=== PATIENT | male | born 1965 | race Hispanic/Latino ===

== ENCOUNTER 2020-06-08 18:42 | Emergency (ER) | payer OTHER, SELFPAY ==
--- NOTE | ~2020-06-08 | XR_ITS ---
EXAMINATION: XR chest 1V portable 06/08/2020 19:35 INDICATION: Cough, fever and chills PROCEDURE: AP portable chest COMPARISON: 01/22/2019 FINDINGS: The lungs are clear. The cardiomediastinal silhouette is within normal limits. There are no pleural effusions. There is no pneumothorax suspected. IMPRESSION: 1: NO ACUTE CARDIOPULMONARY DISEASE. Reviewed, dictated and finalized at location A.
[2020-06-08 18:46] VITALS: BP 142/102; PULSE 83; RESP 18; TEMP 36.6; O2SAT 97
--- NOTE | 2020-06-08 19:08 | ED.GENADULT ---
HPI - General Adult General Chief complaint: Upper Respiratory Infection Stated complaint: fever, nasal & chest congestion, sore throat Time Seen by Provider: 06/08/20 19:07 Source: patient and family Mode of arrival: ambulatory Limitations: no limitations History of Present Illness HPI narrative: Patient is a 55-year-old male who presents for evaluation of fever, chills, cough. Patient reports he has been feeling unwell since Sunday when he developed a low-grade fever of 100 Fahrenheit, chills, rhinorrhea and sore throat. That is now progressed and he now has been having a productive cough. He denies any nausea, vomiting, flank pain, myalgias or diarrhea. He has been able to tolerate oral intake. No chest pain or shortness of breath. No recent sick contacts. 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 Nobody is sick at home. Patient has no history of pneumonia. Related Data Allergies Allergy/AdvReac Type Severity Reaction Status Date / Time No Known Allergies Allergy Unverified 11/03/19 09:42 Review of Systems Review of Systems: Narrative: CONSTITUTIONAL: Reports fever and chills ENT: Reports rhinorrhea, congestion, sore throat CARDIOVASCULAR: Denies chest pain, palpitations, or edema. RESPIRATORY: Reports cough, denies shortness of breath GASTROINTESTINAL: Denies abdominal pain, nausea, vomiting, or diarrhea. GENITOURINARY: Denies dysuria or hematuria. SKIN: Denies rash or itching. MUSCULOSKELETAL: Denies back pain, joint pain, or myalgia. NEUROLOGIC: Denies headache, numbness, or weakness. [facility] Past Medical History Medical History (Updated 06/08/20 @ 21:07 by Dania Gtz MD) No pertinent past medical history Presence of surgical screw in right hand Surgical History Surgical History (Updated 06/08/20 @ 19:45 by Dania Gtz MD) Hx of hand surgery Social History Social History (Updated 06/08/20 @ 19:45 by Dania Gtz MD) Smoking status: Current some day smoker Tobacco type: cigarettes Alcohol intake: current Substance use: current Substance use type: crack/cocaine Living arrangements: with family Gender identity (if verbalized by the patient): Male Exam Narrative: Exam Narrative: GENERAL: Awake, alert, conversant HEAD: Normocephalic, atraumatic. EYES: PERRLA and EOMI. ENT: Nares clear, no rhinorrhea or epistaxis. Mucous membranes moist. NECK: Supple. CHEST: No respiratory distress, breathing even and non labored HEART: Regular rate, sinus rhythm ABDOMEN:Non distended, non tender EXTREMITIES: Normal range of motion. No edema. SKIN: Warm, dry, no rash. NEURO:No focal deficits. Alert and oriented x3 Course Vital Signs Vital signs: Vital Signs Temperature 36.6 C 06/08/20 18:46 Pulse Rate 83 06/08/20 18:46 Respiratory Rate 18 06/08/20 18:46 Blood Pressure 142/102 H 06/08/20 18:46 Pulse Oximetry 97 06/08/20 18:46 Temperature 36.6 C 06/08/20 18:46 Pulse Rate 63 06/08/20 19:45 Respiratory Rate 17 06/08/20 19:45 Blood Pressure 140/90 06/08/20 19:45 Pulse Oximetry 97 06/08/20 19:45 Medical Decision Making [facility] Narrative Medical decision making narrative: Patient well-appearing, no signs of acute febrile illness based on vital signs. He is well-appearing without hypoxemia, chest pain or increased work of breathing. No nausea or vomiting. Not obtain blood work as I feel like his chest x-ray is clear his urinalysis is clear he has no evidence of severe infectious type process. No evidence of pneumonia. Clinically this may be a respiratory virus, we need to exclude COVID so we will order COVID swab. Patient and family were updated, I explained results to be called to his primary care provider and patient was discharged home. Differential Diagnosis Differential Diagnosis: COVID infection, pneumonia, bronchitis, UTI Vital Signs Vital Signs: Vital Signs Temperature 36.6 C 06/08/20 18:46
[2020-06-08 19:45] VITALS: BP 140/90; PULSE 63; RESP 17; O2SAT 97
[2020-06-08 19:59] LABS: Add Urine Microscopic? YES; Appearance Urine Clear (Clear); Bacteria Urine Trace /hpf; Bilirubin Urine Negative (Negative); Blood Urine Negative (Negative); Color Urine Yellow (Yellow); Glucose Urine UA Negative (Negative); Ketones Urine Negative (Negative); Leukocyte Esterase Ur Negative LEU/UL (Negative); Mucus Urine Rare /lpf; Nitrate Urine Negative (Negative); Protein Urine Negative (Negative); RBC Urine 0-2 /hpf (0-2); Specific Grav Ur 1.025 (1.001-1.035); WBC Urine 0-3 /hpf
[2020-06-08 21:44] VITALS: RESP 17
[2020-06-09 18:19] LABS: SARS-CoV-2 RNA PCR Negative
== END 2020-06-08 21:45 | disposition home or self-care (01) ==
PROVIDERS: Emergency Provider Emergency Medicine; PCP Family Medicine
DX: J06.9 Acute upper respiratory infection, unspecified (principal); Z20.828 Contact with and (suspected) exposure to other viral communicable diseases
CPT/HCPCS: 71045; 81001; 87081; 87635; 87880; 99283; C9803; U0003

== ENCOUNTER 2021-11-23 09:17 | Emergency (ER) | payer OTHER, SELFPAY ==
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
[2021-11-23 09:26] VITALS: BP 158/91; PULSE 64; RESP 18; TEMP 36.4; O2SAT 97
[2021-11-23 10:11] VITALS: BP 155/88; PULSE 68; RESP 14; O2SAT 97
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
== END 2021-11-23 10:11 | disposition home or self-care (01) ==
PROVIDERS: Emergency Provider Emergency Medicine; PCP Family Medicine
DX: S39.012A Strain of muscle, fascia and tendon of lower back, initial encounter (principal); F17.210 Nicotine dependence, cigarettes, uncomplicated; M47.816 Spondylosis without myelopathy or radiculopathy, lumbar region; V49.40XA Driver injured in collision with unspecified motor vehicles in traffic accident, initial encounter
CPT/HCPCS: 72110; 99283

== ENCOUNTER 2022-10-18 17:25 | Emergency (ER) | payer OTHER, SELFPAY ==
[2022-10-18] VITALS (13 sets, daily range): BP systolic 112–157; BP diastolic 85–97; PULSE 74–84; RESP 12–18; TEMP 36.7; O2SAT 95–100
--- NOTE | ~2022-10-18 | CT_ITS ---
CT Abdomen and Pelvis with contrast. History: Abdominal pain. Spiral CT of the abdomen and pelvis was performed after the administration of intravenous contrast. 1 00 cc of Omnipaque 350 was administered intravenously without complication. Dose reduction technique was used on this scan by utilizing automated exposure control and iterative reconstruction technique. The dose-length product (DLP) was 282.76 mGy-cm. COMPARISON: 01/15/2017 Findings: Scans through the lung bases demonstrate mild atelectatic change. Probable diffuse fatty infiltration of the liver. The spleen, pancreas, gallbladder, adrenals and kid neys are within normal limits. No evidence of aortic aneurysm. No lymphadenopathy is seen. There is no evidence of bowel obstruction. There is no evidence to suggest acute appendicitis or dive rticulitis. Images through the pelvis were performed. Urinary bladder unremarkable. Prostate gland and seminal ve sicles are unremarkable. No ascites is seen. Impression: Probable diffuse fatty infiltration of the liver. No other significant findings. Reviewed, dictated and finalized at [facility]. S SUPERINTENDENT Impression: Probable diffuse fatty infiltration of the liver. No other significant findings.
[2022-10-18 17:51] LABS: Basophils Percent Auto 0.3 % (0.2-1.2); Eosinophils Percent Auto 0.1 % (0-4.4); Hematocrit 42.5 % (42.0-52.0); Hemoglobin 14.9 g/dL (14.0-18.0); Immature Granulocyte Absolute 0.02 K/mm3 (0.00-0.031); Immature Granulocyte Percent A 0.3 % (0-0.5); Lymphocytes Absolute Auto 2.34 K/mm3 (0.9-3.2); Lymphocytes Percent Auto 33.2 % (18.3-44.2); Mean Corpuscular HGB Conc 35.1 g/dl (32-36); Mean Corpuscular Hemoglobin 31.9 pg (26-34); Mean Platelet Volume 9.8 fl (7.4-10.4); Monocytes Absolute Auto 0.6 K/mm3 (0.1-0.6); Monocytes Percent Auto 7.8 % (2.6-8.5); Neutrophils Absolute Auto 4.1 K/mm3 (1.3-6.7); Neutrophils Percent Auto 58.3 % (45.5-73.1); Platelet Count Result 310 k/mm3 (150-375); Red Blood Count 4.67 M/mm3 (4.6-6.20); Red Cell Distribution Width 12.2 % (11.5-14.5)
[2022-10-18 18:06] LABS: Alanine Aminotransferase 52 U/L (6-50); Albumin Level 4.8 g/dL (3.5-5.1); Alkaline Phosphatase 91 U/L (38-126); Anion Gap 11 mmol/L (8-16); Aspartate Amino Transferase 27 U/L (17-59); Bilirubin,Total 0.5 mg/dL (0.2-1.3); Blood Urea Nitrogen 12 mg/dL (9-20); Carbon Dioxide 25 mmol/L (22-30); Chloride 97 mmol/L (98-107); Estimated CRCL calculation 78 ml/min; Estimated Glomerular Filt Rate > 60; Glucose 106 mg/dL (65-110); Lipase 117 U/L (23-300); Potassium 4.1 mmol/L (3.4-5.0); Sodium 133 mmol/L (137-145)
[2022-10-18 18:08] LABS: Add Urine Microscopic? NO; Appearance Urine Clear (Clear); Bilirubin Urine Negative (Negative); Blood Urine Negative (Negative); Color Urine Yellow (Yellow); Glucose Urine UA Negative (Negative); Ketones Urine Negative (Negative); Leukocyte Esterase Ur Negative LEU/UL (Negative); Nitrate Urine Negative (Negative); Protein Urine Negative (Negative); Specific Grav Ur <= 1.005 (1.001-1.035); Urobilinogen Urine 0.2 mg/dL (<2.0); pH Urine 6.5 (5.0-9.0)
[2022-10-18] MEDS: SODIUM CHLORIDE 0.9% IV 1,000 ML 999 ML IV CONT (22:23)
--- NOTE | 2022-10-18 22:46 | ED.GENADULT ---
HPI - General Adult General Chief complaint: Nausea/Vomiting/Diarrhea Stated complaint: nausea vomiting/ weakness Time Seen by Provider: 10/18/22 22:01 History of Present Illness HPI narrative: 57-year-old male with history of diverticulitis, fatty liver disease and daily alcohol consumption presents to the emergency department complaining of nausea vomiting abdominal cramping that started on Sunday. He states he had similar problems last week and was seen at an outside hospital. Patient was provided Bentyl and Zofran. Patient states he is still been taking this medication but it has not helped. Patient began having worsening cramping on Sunday but denies any current abdominal pain. Patient states he still having decreased p.o. intake. Patient denies any recent alcohol intake. Patient denies any prior history of alcohol withdrawal but states he does have some increased anxiety related to his abdominal pain. Family member was present during this discussion Related Data Allergies Allergy/AdvReac Type Severity Reaction Status Date / Time No Known Allergies Allergy Verified 11/23/21 09:28 Review of Systems Review of Systems: CONSTITUTIONAL: Denies fever, chills, or sweats. EYES: Denies visual changes, redness, or discharge. ENT: Denies rhinorrhea, congestion, sore throat, or otalgia. CARDIOVASCULAR: Denies chest pain, palpitations, or edema. RESPIRATORY: Denies cough or dyspnea. GASTROINTESTINAL: See HPI GENITOURINARY: Denies dysuria or hematuria. SKIN: Denies rash or itching. MUSCULOSKELETAL: Denies back pain, joint pain, or myalgia. NEUROLOGIC: Denies headache, numbness, or weakness. [facility] Past Medical History Medical History (Updated 10/19/22 @ 00:21 by Larry Anthony MD) No pertinent past medical history Presence of surgical screw in right hand Surgical History Surgical History (Updated 06/08/20 @ 19:45 by Dania Gtz MD) Hx of hand surgery Social History Social History (Updated 06/08/20 @ 19:45 by Dania Gtz MD) Smoking status: Current some day smoker Tobacco type: cigarettes Alcohol intake: current Substance use: current Substance use type: crack/cocaine Gender identity (if verbalized by the patient): Male Exam Narrative: APPEARANCE: Well appearing, no pain, no distress, well-nourished. HEAD: normocephalic, atraumatic. EYES: PERRLA/EOMI, conjunctivae clear. NOSE: Normal no drainage EARS:TMS clear with good light reflex. NECK: Supple. No adenopathy, no masses. RESPIRATORY: Airway patent, respirations nonlabored. Clear to auscultation bilaterally, no rales, rhonchi, wheezing. CARDIOVASCULAR: Regular rate and rhythm without murmurs rubs or gallops. ABDOMINAL: Lower abdominal tenderness to palpation, nondistended, normal bowel sounds MUSCULOSKELETAL: Moves all extremities. Strength/ROM intact, No edema, No calf tenderness. NEURO: Alert. Cranial nerves II through XII intact. Grossly intact SKIN: Warm, dry. Normal Color Course Course Emergency Course: Patient is afebrile with no leukocytosis. Patient has minimal abdominal tenderness UA shows no evidence of infection. CT showed no evidence of intra-abdominal pathology. Patient does feel improved with treatment. Patient will be provided Reglan for nausea control at home. Patient was going to close follow-up with his primary care physician. Patient was also informed that he may need follow-up with GI. All questions concerns were addressed. Differential diagnosis did include colitis, diverticulitis, appendicitis, cholecystitis, ileus, small bowel obstruction, alcohol withdrawal. With normal-appearing labs and a negative CT scan most likely etiology is a gastroenteritis. Patient was provided medications for nausea control and was encouraged of close well up with his primary care physician. All questions concerns were addressed. Patient and family were comfortable with the plan for discharge and close follow-up. Vital Sig
[2022-10-18] MEDS: METOCLOPRAMIDE HCL INJ 10 MG/2 ML VIAL IV PUSH (23:08)
[2022-10-19] VITALS (8 sets, daily range): BP systolic 111–127; BP diastolic 70–83; PULSE 56–77; RESP 18; O2SAT 97–100
[2022-10-19] MEDS: SODIUM CHLORIDE 0.9% IV 1,000 ML 999 ML IV CONT (00:09)
== END 2022-10-19 01:25 | disposition home or self-care (01) ==
PROVIDERS: Emergency Medicine; Emergency Provider Emergency Medicine; PCP Family Medicine
DX: R11.2 Nausea with vomiting, unspecified (principal); R19.7 Diarrhea, unspecified; F17.210 Nicotine dependence, cigarettes, uncomplicated
CPT/HCPCS: 36415; 74177; 80053; 81003; 83690; 85025; 96361; 96374; 99284; J2765; J7030; Q9967

== ENCOUNTER 2024-02-22 13:26 | Emergency (ER) | payer OTHER, SELFPAY ==
[2024-02-22 13:41] VITALS: BP 123/83; PULSE 71; RESP 20; TEMP 36.2; O2SAT 99
--- NOTE | 2024-02-22 13:57 | ED.EYEPROB ---
HPI - Eye Problem General Chief complaint: Eye Problems Stated complaint: metal piece in right eye Time Seen by Provider: 02/22/24 14:01 Source: patient and RN notes reviewed Mode of arrival: ambulatory Limitations: intoxication History of Present Illness HPI Narrative: 58-year-old male presents with concern for possibly getting metal in his eye. 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 Reports he has had pain and tearing since then. Reports symptoms have slightly improved since it happened. chief complaint: eye pain Related Data Allergies Allergy/AdvReac Type Severity Reaction Status Date / Time No Known Allergies Allergy Verified 02/22/24 13:41 Review of Systems Review of Systems: CONSTITUTIONAL: Denies malaise, chills, sweats, or fever. EYES: Denies visual changes. Reports pain, tearing to the right eye ENT: Denies rhinorrhea, congestion, sinus pain, otalgia or sore throat. SKIN: Denies rash or itching. NEUROLOGIC: Denies numbness, weakness, or headache. PSYCHIATRIC: Denies anxiety or depression. All systems reviewed & are unremarkable except as noted in HPI and below PMFSH Past Medical History Medical History (Updated 02/22/24 @ 14:09 by Valarie Pascual NP) No pertinent past medical history Presence of surgical screw in right hand Surgical History Surgical History (Updated 06/08/20 @ 19:45 by Dania Gtz MD) Hx of hand surgery Social History Social History (Updated 06/08/20 @ 19:45 by Dania Gtz MD) Smoking status: Current some day smoker Tobacco type: cigarettes Alcohol intake: current Substance use: current Substance use type: crack/cocaine Living arrangements: with family Gender identity (if verbalized by the patient): Male Comments At time of signature, agree with nursing past medical, surgical, social and family history. There is no relevant family history pertinent to the presenting complaint Exam Narrative: GENERAL: Well-appearing, well-nourished, and in no acute distress. HEAD: Normocephalic, atraumatic. EYES: PERRLA, sclera clear, and EOMI. No nystagmus. Bilateral conjunctivae clear. Upper and lower eyelid unremarkable, no periorbital edema noted. Corneal abrasion noted upon Wood's lamp exam, see note ENT: Nares clear, turbinates pink, no rhinorrhea or epistaxis. Mucous membranes moist. TM pearly rico with sharp light reflex bilaterally; no tragal tenderness. NECK: Supple. CHEST: No respiratory distress. Speaks in full sentences. HEART: Regular rate and rhythm. SKIN: Warm, dry, no visible rash. NEURO: Alert and oriented x3. PSYCH: Normal mood and affect Course Course Emergency Course: Patient is aware of diagnosis, understands and agrees to treatment plan. Anticipatory guidance given. Patient agrees to follow-up as directed and is aware of reasons to seek care at the emergency department. Portions of this record may have been created with voice recognition software Level of Care: Express Care Visit Vital Signs Vital signs: Vital Signs Temperature 97.1 F L 02/22/24 13:41 Pulse Rate 71 02/22/24 13:41 Respiratory Rate 20 02/22/24 13:41 Blood Pressure 123/83 02/22/24 13:41 Pulse Oximetry 99 02/22/24 13:41 Oxygen Delivery Room Air 02/22/24 13:41 Temperature 97.1 F L 02/22/24 13:41 Pulse Rate 71 02/22/24 13:41 Respiratory Rate 20 02/22/24 13:41 Blood Pressure 123/83 02/22/24 13:41 Pulse Oximetry 99 02/22/24 13:41 Oxygen Delivery Room Air 02/22/24 13:41 Reviewed. Procedures Other Procedure Procedure 1: Other Procedure: Tetracaine 1 gtt instilled in right eye, fluorescein stain applied. Corneal abrasion noted upon burden lamp exam above the pupil. Eye washed with NS 100 ml. No foreign bodies or Wendy sign noted. The corneal injury appears to be from an object that may have penetrated the cornea, however, I can not visualize any foreign bod
[2024-02-22] MEDS: TETRACAINE HCL 0.5% OPHTH SOLN 4 ML BTL 1 DROP RIGHT EYE (14:03)
[2024-02-22] MEDS: DACRIOSE EYE IRRIGATION 118 ML BOTTLE 100 ML RIGHT EYE (14:05)
[2024-02-22] MEDS: FLUORESCEIN SOD 1 MG/STRIP RIGHT EYE (14:05)
== END 2024-02-22 14:15 | disposition home or self-care (01) ==
PROVIDERS: Emergency Provider Nurse Practitioner; PCP Family Medicine
DX: S05.01XA Injury of conjunctiva and corneal abrasion without foreign body, right eye, initial encounter (principal); T14.90XA Injury, unspecified, initial encounter
CPT/HCPCS: 99213; A9270; G0463

== ENCOUNTER 2024-08-10 12:12 | Emergency (ER) | payer OTHER, SELFPAY ==
--- NOTE | ~2024-08-10 | CT_ITS ---
EXAMINATION: CT abdomen pelvis w con DATE: 08/10/2024 13:52 INDICATION: Left lower quadrant abdominal pain. TECHNIQUE: Computed tomography (CT) of the abdomen and pelvis was performed with 100 mL Omnipaque 350 intravenous contrast. Automated exposure control and iterative reconstruction technique were employe d. The dose-length product was 305.19 mGy-cm. COMPARISON: CT abdomen pelvis 10/18/2022 FINDINGS: The visualized portions of lung bases are clear without pneumonia or pleural effusion. The heart size is normal. No pericardial effusion. There is diffuse hepatic steatosis. The gallbladder, s pleen, pancreas, adrenal glands, and kidneys are normal. There are no dilated loops of bowel. The asher endix is normal. There is no ascites. There are no pathologically enlarged lymph nodes. There is trish re lower lumbar spondylosis. IMPRESSION: 1. Diffuse hepatic steatosis. Reviewed, dictated and finalized at location A.
[2024-08-10 12:16] VITALS: BP 180/105; PULSE 94; RESP 20; TEMP 36.3; O2SAT 99
[2024-08-10 12:23] VITALS: RESP 22; O2SAT 99
[2024-08-10 12:26] VITALS: BP 171/100; PULSE 95; RESP 21; O2SAT 98
[2024-08-10] MEDS: LORazepam (*CRX) 0.5 MG TABLET PO (12:40)
--- NOTE | 2024-08-10 12:46 | PC.NURSE ---
blood sent to lab
[2024-08-10 12:49] LABS: Basophils Percent Auto 0.2 % (0.2-1.2); Eosinophils Percent Auto 0.2 % (0-4.4); Hematocrit 45.5 % (42.0-52.0); Hemoglobin 15.7 g/dL (14.0-18.0); Immature Granulocyte Absolute 0.01 K/mm3 (0.00-0.031); Immature Granulocyte Percent A 0.2 % (0-0.5); Lymphocytes Absolute Auto 1.64 K/mm3 (0.9-3.2); Lymphocytes Percent Auto 31.2 % (18.3-44.2); Mean Corpuscular HGB Conc 34.5 g/dl (32-36); Mean Corpuscular Hemoglobin 32.4 pg (26-34); Monocytes Absolute Auto 0.6 K/mm3 (0.1-0.6); Monocytes Percent Auto 11.2 % (2.6-8.5); Platelet Count Result 212 k/mm3 (150-375); Red Blood Count 4.84 M/mm3 (4.6-6.20); Red Cell Distribution Width 13.2 % (11.5-14.5); White Blood Count 5.3 K/mm3 (4.5-10.0)
--- NOTE | 2024-08-10 13:05 | ED_ITS ---
HPI - Recheck/Abnormal Lab/Rx General Chief Complaint: Recheck/Abnormal Lab/Rx Stated Complaint: anxiety, BP high, I feel weird. Time Seen by Provider: 08/10/24 12:16 Source: patient Mode of arrival: ambulatory Limitations: no limitations History of Present Illness HPI narrative: This is a 59-year-old male, with history of diverticula and anxiety, who presents to the emergency department complaining of feelings of anxiety and elevated blood pressure. The patient states he was this morning and felt ?weird. ? He also complains of intermittent left lower quadrant sharp abdominal pain rated 6/10. He states yesterday evening, he was drinking alcohol, felt this pain and was given a white powder to snore from a stranger. He denies knowing the nature of the powder. He has no other complaints at this time Related Data Allergies Allergy/AdvReac Type Severity Reaction Status Date / Time No Known Allergies Allergy Verified 02/22/24 13:41 Review of Systems Review of Systems: All systems reviewed & are unremarkable except as noted in HPI and below PMFSH Past Medical History Medical History No pertinent past medical history Presence of surgical screw in right hand Surgical History Surgical History Hx of hand surgery Social History Social History Smoking status: Current some day smoker Tobacco type: cigarettes Alcohol intake: current Substance use: current Substance use type: crack/cocaine Living arrangements: with family Gender identity (if verbalized by the patient): Male Exam Narrative: GENERAL: Well-developed, well-nourished, and in no acute distress. Appears mildly anxious HEAD: Normocephalic, atraumatic. EYES: PERRLA and EOMI. CHEST: Clear to auscultation. No respiratory distress. No wheezes rales or rhonchi HEART: Regular rate and rhythm. No murmur heard. Normal peripheral pulses. ABDOMEN: Soft, left lower quadrant tenderness to palpation, no rebound or guard, nondistended, normal active bowel sounds. No CVA tenderness EXTREMITIES: Normal range of motion. No edema. SKIN: Warm, dry, no rash. NEURO: Alert and oriented x3. No focal deficit. Moving all 4 limbs spontaneously PSYCH: Normal mood and affect. Course Course Emergency Course: 14:26 - CBC unremarkable. Chemistries demonstrate AST/ALT elevation of 107/106 respectively. UA not concerning for UTI. Urine drug screen positive for cocaine. CT abdomen pelvis demonstrates hepatic steatosis (the patient states he has been diagnosed with fatty liver) but is not concerning for other acute intra-abdominal processes. I suspect the patient's cocaine use is the cause of his symptoms. He states he feels improved after 0.5 mg of Ativan. Will discharge. I discussed the findings and recommendations with the patient. Discussed return and emergency precautions including signs/symptoms of ACS, acute abdomen and respiratory distress. The patient voiced understanding and agreement with the plan. All questions answered to his satisfaction. Vital Signs Vital signs: Vital Signs Temperature 97.3 F L 08/10/24 12:16 Pulse Rate 94 08/10/24 12:16 Respiratory Rate 20 08/10/24 12:16 Blood Pressure 180/105 H 08/10/24 12:16 Pulse Oximetry 99 08/10/24 12:16 Oxygen Delivery Room Air 08/10/24 12:16 Temperature 97.3 F L 08/10/24 12:16 Pulse Rate 72 08/10/24 13:41 Respiratory Rate 16 08/10/24 13:41 Blood Pressure 139/81 08/10/24 13:41 Pulse Oximetry 100 08/10/24 13:41 Oxygen Delivery Room Air 08/10/24 12:16 MDM - Recheck/Abnormal Lab/Rx MDM Narrative Medical decision making narrative: Plan: Labs, imaging, anxiolytics, reassess Differential Diagnosis Differential diagnosis: Likely other (Diverticulitis, mass, UTI, cocaine int oxication, anxiety, metabolic abnormality, other) Lab Data 08/10/24 12:43 08/10/24 12:43 Labs: Lab Results 08/10/24 08/10/24 Range/Units 12:43 13:19 WBC 5.3 (4.5-10.0) K/mm3 RBC 4.84 (4.6-6.20) M/mm3 Hgb 15.7 (14.0-18.0) g/dL Hct 45.5 (42.0-52.0) % MCV 94.0 (80-100) fl MCH 32.4 (26-34) pg MCHC 34.5 (32-36) g/dl RDW 13.2 (11.5-14.5) % Plt Count 212 (150-375) k/mm3 MPV 10.0 (7.4-10.4) fl Immature Gran % (Auto) 0.2 (0-0.5) % Neut % (Auto) 57.0 (45.5-73.1) % Lymph % (Auto) 31.2 (18.3-44.2) % [place] % (Auto) 11.2 H (2.6-8.5) % Eos % (Auto) 0.2 (0-4.4) % Baso % (Auto) 0.2 (0.2-1.2) % Lymph # (Auto) 1.64 (0.9-3.2) K/mm3 [place] # (Auto) 0.6 (0.1-0.6) K/mm3 Eos # (Auto) 0.0 (0-0.3) K/mm3 Baso # (Auto) 0.0 (0.0-0.1) K/mm3 Abs Immat Gran (auto) 0.01 (0.00-0.031) K/mm3 Absolute Neuts (auto) 3.0 (1.3-6.7) K/mm3 Absolute Nucleated RBC 0.000 (0.0-0.012) K/mm3 Nucleated RBC % 0.0 (0.0-0.2) % Sodium 139 (137-145) mmol/L Potassium 4.3 (3.4-5.0) mmol/L Chloride 102 (98-107) mmol/L Carbon Dioxide 22 (22-30) mmol/L Anion Gap 15 H (4-12) mmol/L BUN 7 L D (9-20) mg/dL Creatinine 0.70 (0.7-1.3) mg/dL Estim Creat Clear Calc 97 ml/min Estimated GFR > 60 (59 - ) Glucose 93 (65-110) mg/dL Calcium 9.3 (8.4-10.2) mg/dL Total Bilirubin 0.6 (0.2-1.3) mg/dL AST 107 H (17-59) U/L ALT 106 H (6-50) U/L Alkaline Phosphatase 74 (38-126) U/L Total Protein 9.0 H (6.3-8.2) g/dL Albumin 5.2 H (3.5-5.1) g/dL Urine Color Yellow (Yellow) Urine Appearance Cloudy H (Clear) Urine pH 5.5 (5.0-9.0) Ur Specific [place] 1.012 (1.001-1.035) Urine Protein Trace (Negative) mg/dL Urine Glucose (UA) Negative (Negative) mg/dL Urine Ketones 1+ H (Negative) mg/dL Ur Blood (Man) Negative (Negative) Urine Nitrate Negative (Negative) Urine Bilirubin Negative (Negative) Urine Urobilinogen 0.2 (<2.0) mg/dL Leukocyte Esterase Rfl Negative (Negative) RICHARD/UL Urine RBC 0-2 (0-2) /hpf Urine WBC 0-5 (0-3) /hpf Ur Squamous Epith Cells None seen (Few) /hpf Urine Bacteria None seen /hpf Urine Casts 0-2 Urine Opiates Screen Negative (Negative) Urine Methadone Screen Negative (Negative) Ur Barbiturates Screen Negative (Negative) Ur Phencyclidine Scrn Negative (Negative) Ur Amphetamine Screen Negative (Negative) U Benzodiazepines Scrn Negative (Negative) Urine Cocaine Screen Positive A (Negative) U Cannabinoids Screen Negative (Negative) Discharge Plan Discharge Clinical Impression: Anxiety, Abdominal pain, acute, left lower quadrant, Cocaine intoxication Patient Disposition: Home, Self-Care Condition: Stable Instructions: Antibiotic Form, Cocaine Use Disorder (ED) Additional Instructions: You were seen in the emergency department. Your labs are not concerning for kidney injury. A CT scan showed changes consistent with fatty liver disease. You tested positive for cocaine. I suspect this is the cause of her symptoms. I recommend rejecting any unknown substance from strangers. If you develop chest pain, shortness of breath, severe abdominal pain with fevers, bleed, or if you have other emergent concerns for life, limb, or eyesight, return to the emergency department. Patient Language: Slovak Prescriptions: New lorazepam [Ativan] 0.5 mg tablet 0.5 mg PO DAILY PRN (Reason: anxiety) Qty: 3 0RF No Action polymyxin B sulf-trimethoprim 10,000 unit- 1 mg/mL drops 1 drp RIGHT EYE Q3H 7 Days Qty: 10 0RF Rx Instructions: while awake; do not exceed 6 doses in 24 hours Follow-up/Referrals: Paula,Delilah Redd MD [Primary Care Provider] - 2 Weeks Time of Disposition: 14:53
[2024-08-10 13:32] LABS: Add Urine Microscopic? YES; Appearance Urine Cloudy (Clear); Bacteria Urine None Seen /hpf; Bilirubin Urine Negative (Negative); Blood Urine Negative (Negative); Color Urine Yellow (Yellow); Glucose Urine UA Negative (Negative); Ketones Urine 1+ mg/dL (Negative); Leukocyte Esterase Ur Negative LEU/UL (Negative); Nitrate Urine Negative (Negative); Non Pathogenic Casts 0-2; Protein Urine Trace mg/dL (Negative); RBC Urine 0-2 /hpf (0-2); Specific Grav Ur 1.012 (1.001-1.035); Squamous Epithelial Cell Urine None Seen /hpf (Few); Urobilinogen Urine 0.2 mg/dL (<2.0); WBC Urine 0-5 /hpf (0-3); pH Urine 5.5 (5.0-9.0)
[2024-08-10 13:36] LABS: Alanine Aminotransferase 106 U/L (6-50); Albumin Level 5.2 g/dL (3.5-5.1); Alkaline Phosphatase 74 U/L (38-126); Anion Gap 15 mmol/L (4-12); Aspartate Amino Transferase 107 U/L (17-59); Bilirubin,Total 0.6 mg/dL (0.2-1.3); Blood Urea Nitrogen 7 mg/dL (9-20); Calcium 9.3 mg/dL (8.4-10.2); Carbon Dioxide 22 mmol/L (22-30); Chloride 102 mmol/L (98-107); Estimated CRCL calculation 97 ml/min; Estimated Glomerular Filt Rate > 60; Glucose 93 mg/dL (65-110); Potassium 4.3 mmol/L (3.4-5.0); Sodium 139 mmol/L (137-145)
[2024-08-10 13:41] VITALS: BP 139/81; PULSE 72; RESP 16; O2SAT 100
[2024-08-10 13:41] LABS: Amphetamine Screen Urine Negative (Negative); Barbiturate Screen Urine Negative (Negative); Benzodiazepines Screen Urine Negative (Negative); Cannabinoid Screen Urine Negative (Negative); Cocaine Screen Urine Positive (Negative); Methadone Screen Urine Negative (Negative); Opiate Screen Urine Negative (Negative); Phencyclidine Screen Urine Negative (Negative)
[2024-08-10 15:02] VITALS: BP 132/88; PULSE 86; RESP 16; TEMP 36.7; O2SAT 100
== END 2024-08-10 15:03 | disposition home or self-care (01) ==
PROVIDERS: Emergency Provider Preventive Medicine Aerospace Medicine; PCP Family Medicine
DX: F41.9 Anxiety disorder, unspecified (principal); R10.32 Left lower quadrant pain; F14.929 Cocaine use, unspecified with intoxication, unspecified
CPT/HCPCS: 36415; 74177; 80053; 80307; 81001; 85025; 99284; A9270; Q9967

== ENCOUNTER 2024-09-16 17:56 | Emergency (ER) | payer OTHER, SELFPAY ==
[2024-09-16 18:16] VITALS: BP 143/97; PULSE 85; RESP 18; TEMP 36.7; O2SAT 96
--- NOTE | 2024-09-16 19:22 | ECG_ITS ---
Test Date: 2024-09-16 20:12:51 Measurements Intervals [place] Rate: 67 P: 48 RI: 153 QRS: 9 QRSD: 86 T: 32 QT: 405 QTc: 430 Interpretive Statements SINUS RHYTHM NORMAL ECG No previous ECG available for comparison Electronically Signed On 09-17-2024 10:55:16 FILM PROCESS OPERATOR by Jose Antonio Blas M.D.
[2024-09-16] MEDS: SODIUM CHLORIDE 0.9% IV 1,000 ML 999 ML IV CONT (19:42)
[2024-09-16] MEDS: ONDANSETRON INJ 4 MG/2 ML VIAL IV PUSH (19:43)
[2024-09-16 19:51] LABS: Basophils Percent Auto 0.2 % (0.2-1.2); Eosinophils Percent Auto 0.5 % (0-4.4); Hemoglobin 15.9 g/dL (14.0-18.0); Immature Granulocyte Absolute 0.01 K/mm3 (0.00-0.031); Immature Granulocyte Percent A 0.2 % (0-0.5); Lymphocytes Absolute Auto 2.24 K/mm3 (0.9-3.2); Lymphocytes Percent Auto 38.6 % (18.3-44.2); Mean Corpuscular HGB Conc 35.3 g/dl (32-36); Mean Corpuscular Hemoglobin 32.9 pg (26-34); Mean Corpuscular Volume 93.2 fl (80-100); Mean Platelet Volume 9.9 fl (7.4-10.4); Monocytes Absolute Auto 0.7 K/mm3 (0.1-0.6); Monocytes Percent Auto 12.7 % (2.6-8.5); Neutrophils Absolute Auto 2.8 K/mm3 (1.3-6.7); Neutrophils Percent Auto 47.8 % (45.5-73.1); Platelet Count Result 243 k/mm3 (150-375); Red Blood Count 4.83 M/mm3 (4.6-6.20); Red Cell Distribution Width 13.2 % (11.5-14.5); White Blood Count 5.8 K/mm3 (4.5-10.0)
[2024-09-16 20:01] LABS: Alanine Aminotransferase 62 U/L (6-50); Alkaline Phosphatase 70 U/L (38-126); Anion Gap 13 mmol/L (4-12); Aspartate Amino Transferase 62 U/L (17-59); Bilirubin,Total 0.6 mg/dL (0.2-1.3); Blood Urea Nitrogen 9 mg/dL (9-20); Calcium 9.1 mg/dL (8.4-10.2); Carbon Dioxide 22 mmol/L (22-30); Chloride 103 mmol/L (98-107); Estimated CRCL calculation 89 ml/min; Estimated Glomerular Filt Rate > 60; Glucose 97 mg/dL (65-110); Lipase 89 U/L (23-300); Magnesium 2.4 mg/dL (1.6-2.3); Potassium 3.8 mmol/L (3.4-5.0); Sodium 138 mmol/L (137-145)
[2024-09-16 20:12] LABS: Troponin I < 0.012 ng/mL (0.000-0.034)
[2024-09-16 20:27] LABS: INR 0.9; Prothrombin Time 13.1 Seconds (11.1-14.7)
[2024-09-16 20:29] LABS: Partial Thromboplastin Time 23.8 Seconds (22.3-36.8)
--- NOTE | 2024-09-16 21:03 | ED.GENADULT ---
HPI - General Adult General Chief complaint: Nausea/Vomiting/Diarrhea Stated complaint: N/V, upper abdominal pain x2 weeks Time Seen by Provider: 09/16/24 19:16 History of Present Illness HPI narrative: Patient is a 59-year-old gentleman who presents emergency department with chief complaint of nausea and epigastric discomfort. The patient reports that he did some drinking yesterday and also did some cocaine the patient states since then he has been feeling anxious and has also been feeling nauseated the patient states that he has no chest pain denies shortness of breath denies diarrhea Related Data Allergies Allergy/AdvReac Type Severity Reaction Status Date / Time No Known Allergies Allergy Verified 09/16/24 17:58 Review of Systems Review of Systems: A 10 system review of systems was completed on the patient and is negative except for what is stated in the HPI. Nursing and ancillary documentation was reviewed. FORMERLY [facility], [facility]–1983 Past Medical History Medical History No pertinent past medical history Presence of surgical screw in right hand Surgical History Surgical History Hx of hand surgery Social History Social History Smoking status: Current some day smoker Tobacco type: cigarettes Alcohol intake: current Substance use: current Substance use type: crack/cocaine Living arrangements: with family Gender identity (if verbalized by the patient): Male Exam Narrative: GENERAL: Well-appearing, well-nourished, and in no acute distress. HEAD: Normocephalic, atraumatic. EYES: PERRLA and EOMI. ENT: Nares clear, no rhinorrhea or epistaxis. Mucous membranes moist. NECK: Supple. CHEST: Clear to auscultation. No respiratory distress. HEART: Regular rate and rhythm. No murmur heard. Normal peripheral pulses. ABDOMEN: Soft, nontender, nondistended, normal active bowel sounds. EXTREMITIES: Normal range of motion. No edema. SKIN: Warm, dry, no rash. NEURO: No focal deficits. Alert and oriented x3. PSYCH: Normal mood and affect. Course Vital Signs Vital signs: Vital Signs Temperature 36.7 C 09/16/24 18:16 Pulse Rate 85 09/16/24 18:16 Respiratory Rate 18 09/16/24 18:16 Blood Pressure 143/97 H 09/16/24 18:16 Pulse Oximetry 96 09/16/24 18:16 Temperature 36.7 C 09/16/24 18:16 Pulse Rate 85 09/16/24 18:16 Respiratory Rate 18 09/16/24 18:16 Blood Pressure 143/97 H 09/16/24 18:16 Pulse Oximetry 96 09/16/24 18:16 Medical Decision Making [facility] Narrative Medical decision making narrative: Differential diagnosis includes gastritis, alcohol abuse, cocaine abuse Patient's laboratory studies were obtained which showed no evidence of pancreatitis ETOH was 48 Patient is feeling better after receiving IV fluids antiemetics The patient will be started on Protonix and given a prescription for Zofran Patient will be encouraged to reduce his alcohol and cocaine use Vital Signs Vital Signs: Vital Signs Temperature 36.7 C 09/16/24 18:16 Pulse Rate 85 09/16/24 18:16 Respiratory Rate 18 09/16/24 18:16 Blood Pressure 143/97 H 09/16/24 18:16 Pulse Oximetry 96 09/16/24 18:16 Temperature 36.7 C 09/16/24 18:16 Pulse Rate 85 09/16/24 18:16 Respiratory Rate 18 09/16/24 18:16 Blood Pressure 143/97 H 09/16/24 18:16 Pulse Oximetry 96 09/16/24 18:16 Lab Data 09/16/24 19:41 09/16/24 19:41 Labs: Lab Results 09/16/24 09/16/24 09/16/24 Range/Units 19:40 19:41 21:05 WBC 5.8 (4.5-10.0) K/mm3 RBC 4.83 (4.6-6.20) M/mm3 Hgb 15.9 (14.0-18.0) g/dL Hct 45.0 (42.0-52.0) % MCV 93.2 (80-100) fl MCH 32.9 (26-34) pg MCHC 35.3 (32-36) g/dl RDW 13.2 (11.5-14.5) % Plt Count 243 (150-375) k/mm3 MPV 9.9 (7.4-10.4) fl Immature Gran % (Auto) 0.2 (0-0.5) % Neut % (Auto) 47.8 (45.5-73.1) % Lymph % (Auto) 38.6 (18.3-44.2) % [place] % (Auto) 12.7 H (2.6-8.5) % Eos % (Auto) 0.5 (0-4.4) % Baso % (Auto) 0.2 (0.2-1.2) % Lymph # (Auto) 2.24 (0.9-3.2) K/mm3 [place] # (Auto) 0.7 H (0.1-0.6) K/mm3 Eos # (Auto) 0.0 (0-0.3) K/mm3 Baso # (Auto) 0.0 (0.0-0.1) K/mm3 Abs Immat Gran (auto) 0.01 (0.00-0.031) K/mm3 Absolute Neuts (auto) 2.8 (1.3-6.7) K/mm3 Absolute Nucleated RBC 0.000 (0.0-0.012) K/mm3 Nucleated RBC % 0.0 (0.0-0.2) % PT 13.1 (11.1-14.7) Seconds INR 0.9 APTT 23.8 (22.3-36.8) Seconds Sodium 138 (137-145) mmol/L Potassium 3.8 (3.4-5.0) mmol/L Chloride 103 (98-107) mmol/L Carbon Dioxide 22 (22-30) mmol/L Anion Gap 13 H (4-12) mmol/L BUN 9 (9-20) mg/dL Creatinine 0.80 (0.7-1.3) mg/dL Estim Creat Clear Calc 89 ml/min Estimated GFR > 60 (59 - ) Glucose 97 (65-110) mg/dL Lactic Acid 2.0 (0.7-2.0) mmol/L Calcium 9.1 (8.4-10.2) mg/dL Magnesium 2.4 H (1.6-2.3) mg/dL Total Bilirubin 0.6 (0.2-1.3) mg/dL AST 62 H (17-59) U/L ALT 62 H (6-50) U/L Alkaline Phosphatase 70 (38-126) U/L Troponin I < 0.012 (0.000-0.034) ng/mL Total Protein 9.0 H (6.3-8.2) g/dL Albumin 5.0 (3.5-5.1) g/dL Lipase 89 (23-300) U/L Urine Color Yellow (Yellow) Urine Appearance Clear (Clear) Urine pH 5.5 (5.0-9.0) Ur Specific [place] 1.009 (1.001-1.035) Urine Protein Negative (Negative) mg/dL Urine Glucose (UA) Negative (Negative) mg/dL Urine Ketones Negative (Negative) mg/dL Ur Blood (Man) Negative (Negative) Urine Nitrate Negative (Negative) Urine Bilirubin Negative (Negative) Urine Urobilinogen 0.2 (<2.0) mg/dL Leukocyte Esterase Rfl Negative (Negative) RICHARD/UL Urine Opiates Screen Negative (Negative) Urine Methadone Screen Negative (Negative) Ur Barbiturates Screen Negative (Negative) Ur Phencyclidine Scrn Negative (Negative) Ur Amphetamine Screen Negative (Negative) U Benzodiazepines Scrn Negative (Negative) Urine Cocaine Screen Positive A (Negative) U Cannabinoids Screen Negative (Negative) Ethyl Alcohol 48 (<10) mg/dL Discharge Plan Discharge Clinical Impression: Gastritis Patient Disposition: Home, Self-Care Condition: Stable Instructions: Antibiotic Form, Gastritis (ED), Acute Nausea and Vomiting (ED) Additional Instructions: It is recommended that you avoid consuming alcohol in excess and avoid using cocaine Prescriptions: New ondansetron 4 mg tablet,disintegrating 4 mg PO Q8H PRN (Reason: nausea and vomiting) Qty: 10 0RF pantoprazole [Protonix] 40 mg tablet,delayed release (DR/EC) 40 mg PO HS 28 Days Qty: 28 0RF No Action polymyxin B sulf-trimethoprim 10,000 unit- 1 mg/mL drops 1 drp RIGHT EYE Q3H 7 Days Qty: 10 0RF Rx Instructions: while awake; do not exceed 6 doses in 24 hours lorazepam [Ativan] 0.5 mg tablet 0.5 mg PO DAILY PRN (Reason: anxiety) Qty: 3 0RF Follow-up/Referrals: Paula,Delilah Redd MD [Primary Care Provider] - Time of Disposition: 21:31
[2024-09-16 21:08] LABS: Ethanol 48 mg/dL (<10)
[2024-09-16 21:13] LABS: Add Urine Microscopic? NO; Appearance Urine Clear (Clear); Bilirubin Urine Negative (Negative); Blood Urine Negative (Negative); Color Urine Yellow (Yellow); Glucose Urine UA Negative (Negative); Ketones Urine Negative (Negative); Leukocyte Esterase Ur Negative LEU/UL (Negative); Nitrate Urine Negative (Negative); Protein Urine Negative (Negative); Specific Grav Ur 1.009 (1.001-1.035); Urobilinogen Urine 0.2 mg/dL (<2.0); pH Urine 5.5 (5.0-9.0)
[2024-09-16 21:30] LABS: Amphetamine Screen Urine Negative (Negative); Barbiturate Screen Urine Negative (Negative); Benzodiazepines Screen Urine Negative (Negative); Cannabinoid Screen Urine Negative (Negative); Cocaine Screen Urine Positive (Negative); Methadone Screen Urine Negative (Negative); Opiate Screen Urine Negative (Negative); Phencyclidine Screen Urine Negative (Negative)
[2024-09-16 21:47] VITALS: BP 148/75; PULSE 66; RESP 14; O2SAT 97
== END 2024-09-16 21:58 | disposition home or self-care (01) ==
PROVIDERS: Emergency Provider Emergency Medicine; PCP Family Medicine
DX: K52.9 Noninfective gastroenteritis and colitis, unspecified (principal); F17.210 Nicotine dependence, cigarettes, uncomplicated
CPT/HCPCS: 36415; 80053; 80307; 81003; 82077; 83605; 83690; 83735; 84484; 85025; 85610; 85730; 93005; 96361; 96374; 99284; J2405; J7030

== ENCOUNTER 2025-06-24 16:21 | Emergency (ER) | payer OTHER, SELFPAY ==
--- NOTE | ~2025-06-24 | XR_ITS ---
XR elbow RT min 3V 06/24/2025 17:34 INDICATION: Right elbow pain PROCEDURE: 3 views right elbow COMPARISON: No prior studies for comparison. FINDINGS: Fracture, dislocation or subluxation is not identified. The soft tissues appear within normal limits. No foreign bodies are identified. IMPRESSION: 1: NO ACUTE BONE OR JOINT ABNORMALITY IDENTIFIED. Reviewed, dictated and finalized at location O.
[2025-06-24 16:58] VITALS: BP 141/92; PULSE 95; RESP 18; TEMP 36.9; O2SAT 98
--- NOTE | 2025-06-24 17:05 | ED.GENADULT ---
HPI - General Adult General Chief complaint: Extremity Problem,Nontraumatic Stated complaint: right elbow pain Time Seen by Provider: 06/24/25 17:05 Source: patient Mode of arrival: ambulatory Limitations: no limitations History of Present Illness HPI narrative: 60 yo M presents with c/o R elbow pain for about 2 months. 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 Pain with movement. Taking ibuprofen with no relief. All systems reviewed and negative except as noted above. Related Data Allergies Allergy/AdvReac Type Severity Reaction Status Date / Time No Known Allergies Allergy Verified 06/24/25 16:56 [facility] Past Medical History Medical History No pertinent past medical history Presence of surgical screw in right hand Surgical History Surgical History Hx of hand surgery Social History Social History Smoking status: Current some day smoker Tobacco type: cigarettes Alcohol intake: current Substance use: current Substance use type: crack/cocaine Living arrangements: with family Gender identity (if verbalized by the patient): Male Comments At time of signature, agree with nursing past medical, surgical, social and family history. There is no relevant family history pertinent to the presenting complaint. Exam Narrative: GENERAL: This is a well-nourished, well-developed patient, in no apparent distress. HEAD: normocephalic, atraumatic. EYES: PERRL. Sclera clear/white. Vision is grossly intact. EARS: External ears normal NOSE: External nose normal NECK: Neck supple, non-tender without lymphadenopathy, masses or thyromegaly. CARDIOVASCULAR: Regular rate and rhythm without murmurs, gallops, or rubs. RESPIRATORY: Clear to auscultation. Breath sounds equal bilaterally. No wheezes, rales, or rhonchi. SKIN: warm, Dry, intact with no suspicious lesions or rash, good texture and turgor. NEURO: awake, alert, and oriented to person, place and time. There were no obvious focal neurologic abnormalities. EXTREMITIES: tenderness to R extensor tendon, normal ROM. no swelling, warmth or erythema. Course Course Level of Care: Express Care Visit Vital Signs Vital signs: Vital Signs Temperature 36.9 C 06/24/25 16:58 Pulse Rate 95 06/24/25 16:58 Respiratory Rate 18 06/24/25 16:58 Blood Pressure 141/92 H 06/24/25 16:58 Pulse Oximetry 98 06/24/25 16:58 Oxygen Delivery Room Air 06/24/25 16:58 Temperature 36.9 C 06/24/25 16:58 Pulse Rate 95 06/24/25 16:58 Respiratory Rate 18 06/24/25 16:58 Blood Pressure 141/92 H 06/24/25 16:58 Pulse Oximetry 98 06/24/25 16:58 Oxygen Delivery Room Air 06/24/25 16:58 reviewed Medical Decision Making MDM Narrative Medical decision making narrative: x-ray of R elbow normal. Will treat with NSAIDS, prednisone for tendonitis. Recommend rest and follow up with PCP. Vital Signs Vital Signs: Vital Signs Temperature 36.9 C 06/24/25 16:58 Pulse Rate 95 06/24/25 16:58 Respiratory Rate 18 06/24/25 16:58 Blood Pressure 141/92 H 06/24/25 16:58 Pulse Oximetry 98 06/24/25 16:58 Oxygen Delivery Room Air 06/24/25 16:58 Temperature 36.9 C 06/24/25 16:58 Pulse Rate 95 06/24/25 16:58 Respiratory Rate 18 06/24/25 16:58 Blood Pressure 141/92 H 06/24/25 16:58 Pulse Oximetry 98 06/24/25 16:58 Oxygen Delivery Room Air 06/24/25 16:58 Imaging Data My impression: agree with radiologist Radiologist's impression: XR elbow RT min 3V 06/24/2025 17:34 INDICATION: Right elbow pain PROCEDURE: 3 views right elbow COMPARISON: No prior studies for comparison. FINDINGS: Fracture, dislocation or subluxation is not identified. The soft tissues appear within normal limits. No foreign bodies are identified. IMPRESSION: 1: NO ACUTE BONE OR JOINT ABNORMALITY IDENTIFIED. Discharge Plan Discharge Clinical Impression: Right elbow tendonitis Patient Disposition: Home Condition: Stable Instructions: Tendinitis (ED) Additional Instructions: The x-ray of your right elbow was normal. Take medications as prescribed. Apply ice as needed for pain. Buy a brace to treat tennis elbow at [employer] or [employer]. Avoid activities that increase your pain. See your doctor if not improving. Patient Language: Kazakh Prescriptions: New meloxicam 7.5 mg tablet 7.5 mg PO DAILY Qty: 30 0RF prednisone 20 mg tablet 40 mg PO DAILY 5 Days Qty: 10 0RF Follow-up/Referrals: Paula,Delilah Redd MD [Primary Care Provider] Time of Disposition: 17:47
== END 2025-06-24 17:53 | disposition home or self-care (01) ==
PROVIDERS: Emergency Provider Nurse Practitioner Family; PCP Family Medicine
DX: M67.823 Other specified disorders of tendon, right elbow (principal); F17.210 Nicotine dependence, cigarettes, uncomplicated
CPT/HCPCS: 73080; 99213; G0463

== ENCOUNTER 2025-08-02 07:01 | Emergency (ER) | payer OTHER, SELFPAY ==
--- NOTE | ~2025-08-02 | XR_ITS ---
Examination: XR chest 2V Clinical History: sore throat, emesis Comparison: 06/08/2020 Technique: PA and Lateral Findings: Cardiomediastinal silhouette normal size and configuration. Lungs clear. No acute bony abnormality. IMPRESSION: 1. No acute cardiopulmonary findings. Reviewed, dictated and finalized at location R.
--- OUTSIDE RECORDS SUMMARY | 2025-08-02 07:03 | XMS_ITS | Clinical Summary ---
Author Organization [facility] Address [address] [place] [address] Phone Care Team Providers Care Color Paste Mixing Supervisor Name Role Phone Unavailable Primary Care Provider Unavailabl e Social History Tobacco Use Types Packs/Day Years Used Date Smoking Tobacco: Never Assessed Sex and Gender Information Value Date Recorded Sex Assigned at Not on file Legal Sex Male 11:25 AM CDT Gender Identity Not on file Sexual Orientation Not on file Plan of Treatment Health Maintenance Due Date Last Done Comments DTAP/TDAP/TD VACCINES (1 - Tdap) 1986 HEPATITIS B VACCINES (1 of 3 - 19+ 3-dose series) 04/15 COLORECTAL SCREENING 2012 Colorectal Cancer Screening 2012 FIT-DNA Q 3 years 2012 FIT/FOBT Q 1 year 2012 Flex Sig/CT Colonography Q 5 years 2012 ZOSTER VACCINE (1 of 2) 2017 INFLUENZA VACCINE (#1) 2025
[2025-08-02 07:18] VITALS: BP 174/94; PULSE 103; RESP 18; TEMP 36.6; O2SAT 97
--- NOTE | 2025-08-02 07:29 | ED.GENADULT ---
HPI - General Adult General Chief complaint: Upper Respiratory Infection Stated complaint: sore throat Time Seen by Provider: 08/02/25 07:06 History of Present Illness HPI narrative: 60-year-old male present to the emergency department for evaluation for worsening sore throat. Patient states that he was drinking alcohol few days ago and had nausea vomiting and made the sore throat worse. Patient reports the sore throat is improving but does still feel sore. Patient also did admit to using cocaine. Related Data Allergies Allergy/AdvReac Type Severity Reaction Status Date / Time No Known Allergies Allergy Verified 08/02/25 07:22 Review of Systems Review of Systems: All systems reviewed & are unremarkable except as noted in HPI and below PMFSH Past Medical History Medical History No pertinent past medical history Presence of surgical screw in right hand Surgical History Surgical History Hx of hand surgery Social History Social History Smoking status: Current some day smoker Tobacco type: cigarettes Alcohol intake: current Substance use: current Substance use type: crack/cocaine Living arrangements: with family Gender identity (if verbalized by the patient): Male Exam Narrative: APPEARANCE: Well-appearing HEAD: normocephalic, atraumatic. EYES: PERRLA/EOMI, conjunctivae clear. NOSE: Normal no drainage EARS:TMS clear with good light reflex. THROAT: Pharynx clear, no exudate. NECK: Supple. No adenopathy, no masses. RESPIRATORY: Airway patent, respirations nonlabored. Clear to auscultation bilaterally, no rales, rhonchi, wheezing. CARDIOVASCULAR: Regular rate and rhythm without murmurs rubs or gallops. ABDOMINAL: Soft, nontender, nondistended, normal bowel sounds MUSCULOSKELETAL: Moves all extremities. Strength/ROM intact, No edema, No calf tenderness. NEURO: Alert. Cranial nerves II through XII intact. Grossly intact SKIN: Warm, dry. Normal Color Course Vital Signs Vital signs: Vital Signs Temperature 97.9 F 08/02/25 07:18 Pulse Rate 103 H 08/02/25 07:18 Respiratory Rate 18 08/02/25 07:18 Blood Pressure 174/94 H 08/02/25 07:18 Pulse Oximetry 97 08/02/25 07:18 Oxygen Delivery Room Air 08/02/25 07:18 Temperature 97.9 F 08/02/25 07:18 Pulse Rate 103 H 08/02/25 07:18 Respiratory Rate 18 08/02/25 07:18 Blood Pressure 174/94 H 08/02/25 07:18 Pulse Oximetry 98 08/02/25 07:43 Oxygen Delivery Room Air 08/02/25 07:43 Medical Decision Making MDM Narrative Medical decision making narrative: 60-year-old male presents to the emergency department for evaluation for sore throat. On re-evaluation patient states he does feel improved. Patient is currently afebrile with no leukocytosis hemoglobin of 15.3. Patient has no acute abnormalities on his CMP patient was negative for influenza RSV COVID and for strep. Chest x-ray shows no acute cardiopulmonary abnormality. I do suspect patient has esophagitis, low concern for abscess or traumatic process. Differential Diagnosis Differential Diagnosis: esophagitis, strep throat, COVID, RSV influenza Vital Signs Vital Signs: Vital Signs Temperature 97.9 F 08/02/25 07:18 Pulse Rate 103 H 08/02/25 07:18 Respiratory Rate 18 08/02/25 07:18 Blood Pressure 174/94 H 08/02/25 07:18 Pulse Oximetry 97 08/02/25 07:18 Oxygen Delivery Room Air 08/02/25 07:18 Temperature 97.9 F 08/02/25 07:18 Pulse Rate 103 H 08/02/25 07:18 Respiratory Rate 18 08/02/25 07:18 Blood Pressure 174/94 H 08/02/25 07:18 Pulse Oximetry 98 08/02/25 07:43 Oxygen Delivery Room Air 08/02/25 07:43 Lab Data Lab results reviewed: Yes I reviewed the patient's lab results. 08/02/25 07:30 08/02/25 07:29 Labs: Lab Results 08/02/25 08/02/25 08/02/25 Range/Units 07:18 07:29 07:30 WBC 9.1 (4.5-10.0) K/mm3 RBC 4.74 (4.6-6.20) M/mm3 Hgb 15.3 (14.0-18.0) g/dL Hct 44.0 (42.0-52.0) % MCV 92.8 (80-100) fl MCH 32.3 (26-34) pg MCHC 34.8 (32-36) g/dl RDW 13.2 (11.5-14.5) % Plt Count 226 (150-375) k/mm3 MPV 10.0 (7.4-10.4) fl Immature Gran % (Auto) 0.4 (0-0.5) % Neut % (Auto) 71.9 (45.5-73.1) % Lymph % (Auto) 17.1 L (18.3-44.2) % [place] % (Auto) 10.2 H (2.6-8.5) % Eos % (Auto) 0.3 (0-4.4) % Baso % (Auto) 0.1 L (0.2-1.2) % Lymph # (Auto) 1.55 (0.9-3.2) K/mm3 [place] # (Auto) 0.9 H (0.1-0.6) K/mm3 Eos # (Auto) 0.0 (0-0.3) K/mm3 Baso # (Auto) 0.0 (0.0-0.1) K/mm3 Abs Immat Gran (auto) 0.04 H (0.00-0.031) K/mm3 Absolute Neuts (auto) 6.5 (1.3-6.7) K/mm3 Absolute Nucleated RBC 0.000 (0.0-0.012) K/mm3 Nucleated RBC % 0.0 (0.0-0.2) % Sodium 139 (137-145) mmol/L Potassium 3.9 (3.4-5.0) mmol/L Chloride 103 (98-107) mmol/L Carbon Dioxide 23 (22-30) mmol/L Anion Gap 13 H (4-12) mmol/L BUN 9 (9-20) mg/dL Creatinine 0.79 (0.7-1.3) mg/dL Estim Creat Clear Calc 88 ml/min Estimated GFR > 60 (59 - ) Glucose 100 (65-110) mg/dL Lactic Acid 1.6 (0.7-2.0) mmol/L Calcium 9.4 (8.4-10.2) mg/dL Total Bilirubin 0.9 (0.2-1.3) mg/dL AST 100 H (17-59) U/L ALT 80 H (6-50) U/L Alkaline Phosphatase 81 (38-126) U/L Total Protein 9.1 H (6.3-8.2) g/dL Albumin 4.8 (3.5-5.1) g/dL Lipase 67 (23-300) U/L Influenza A (RT-PCR) Negative (Negative) Influenza B (RT-PCR) Negative (Negative) RSV (RT-PCR) Negative (Negative) SARS-CoV-2 RNA (RT-PCR) Negative (Negative) Group A Strep (PCR) Not detected (Negative) Imaging Data My impression: Chest x-ray: No acute cardiopulmonary abnormality Radiologist's impression: Impressions Chest X-Ray 08/02/25 07:56 IMPRESSION: 1. No acute cardiopulmonary findings. Discharge Plan Discharge Clinical Impression: Esophagitis Patient Disposition: Home Condition: Stable Instructions: Antibiotic Form, Esophagitis (ED) Additional Instructions: Avoid cocaine and avoid alcohol. Follow a bland diet. Omeprazole as directed for the next 14 days. Have close follow-up with GI. If you have any worsening symptoms then please call or return to the emergency department. Patient Language: Uz[place] Prescriptions: New omeprazole 20 mg capsule,delayed release(DR/EC) 20 mg PO DAILY 14 Days Qty: 14 0RF No Action meloxicam 7.5 mg tablet 7.5 mg PO DAILY Qty: 30 0RF prednisone 20 mg tablet 40 mg PO DAILY 5 Days Qty: 10 0RF Follow-up/Referrals: Paula,Delilah Redd MD [Primary Care Provider]
[2025-08-02 07:35] LABS: Hematocrit 44.0 % (42.0-52.0); Hemoglobin 15.3 g/dL (14.0-18.0); Immature Granulocyte Percent A 0.4 % (0-0.5); Lymphocytes Absolute Auto 1.55 K/mm3 (0.9-3.2); Mean Corpuscular HGB Conc 34.8 g/dl (32-36); Mean Corpuscular Hemoglobin 32.3 pg (26-34); Mean Corpuscular Volume 92.8 fl (80-100); Nucleated Red Blood Cells Absolute Auto 0.000 K/mm3 (0.0-0.012); Nucleated Red Blood Cells Perc 0.0 % (0.0-0.2); Platelet Count Result 226 k/mm3 (150-375); Red Blood Count 4.74 M/mm3 (4.6-6.20); White Blood Count 9.1 K/mm3 (4.5-10.0)
[2025-08-02] MEDS: ONDANSETRON INJ 4 MG/2 ML VIAL IV PUSH (07:35)
[2025-08-02] MEDS: BELLADONNA ALK/PHENOB ELIX 10 ML, MAG HYDROX/ALUMINUM HYD/SIMETH 30 ML, LIDOCAINE 2% VI... PO (07:35)
[2025-08-02] MEDS: LACTATED RINGERS 1,000 ML 999 ML IV CONT (07:36)
[2025-08-02 07:43] VITALS: O2SAT 98
[2025-08-02 07:47] LABS: Strep Group A RT-PCR NOT DETECTED (Negative)
[2025-08-02 07:48] LABS: Alanine Aminotransferase 80 U/L (6-50); Albumin Level 4.8 g/dL (3.5-5.1); Alkaline Phosphatase 81 U/L (38-126); Anion Gap 13 mmol/L (4-12); Aspartate Amino Transferase 100 U/L (17-59); Bilirubin,Total 0.9 mg/dL (0.2-1.3); Blood Urea Nitrogen 9 mg/dL (9-20); Calcium 9.4 mg/dL (8.4-10.2); Carbon Dioxide 23 mmol/L (22-30); Chloride 103 mmol/L (98-107); Estimated CRCL calculation 88 ml/min; Estimated Glomerular Filt Rate > 60; Glucose 100 mg/dL (65-110); Lipase 67 U/L (23-300); Potassium 3.9 mmol/L (3.4-5.0); Sodium 139 mmol/L (137-145); Total Protein 9.1 g/dL (6.3-8.2)
[2025-08-02 08:00] LABS: Influenza A QL RT-PCR Negative (Negative); Influenza B QL RT-PCR Negative (Negative); RSV RNA, RT-PCR Negative (Negative); SARS-CoV-2 RNA PCR Negative (Negative)
--- OUTSIDE RECORDS SUMMARY | 2025-08-02 08:06 | XMS_ITS | Clinical Summary ---
Author Organization [facility] Address [address] [place] [address] Phone Care Team Providers Care Content Analyst Name Role Phone Unavailable Primary Care Provider [...]
== END 2025-08-02 09:33 | disposition home or self-care (01) ==
PROVIDERS: Emergency Provider Emergency Medicine; PCP Family Medicine
DX: K20.90 Esophagitis, unspecified without bleeding (principal); Z20.822 Contact with and (suspected) exposure to COVID-19; F17.210 Nicotine dependence, cigarettes, uncomplicated
CPT/HCPCS: 36415; 71046; 80053; 83605; 83690; 85025; 87637; 87651; 96361; 96374; 99284; A9270; J2405; J7120